=== PATIENT | male | born 1965 | race Caucasian/White ===

== ENCOUNTER 2024-10-24 17:56 | Emergency (ER) | payer SELFPAY ==
[2024-10-24 17:58] VITALS: BP 135/93; PULSE 99; RESP 18; TEMP 36.9; O2SAT 98; BMI 30.3
--- NOTE | 2024-10-24 18:06 | EX.ED.DYSGE1 ---
HPI History of Present Illness Chief Complaint: Abd Pain PFSH PFSH Home Medications ?Medication ?Instructions ?Recorded ?Last Taken ?Type No Known/Unobtainable [No Known 06/14/17 Unknown History Home Medications] Allergy/AdvReac Type Severity Reaction Status Date / Time Tetracyclines Allergy Rash Verified 10/24/24 17:58 Social History (Updated 03/23/18 @ 11:58 by Joshua DENNIS, PA) Smoking Status: Current every day smoker tobacco type: cigarettes EXAM Physical Exam Const Vital Signs: 10/24/24 17:58 10/24/24 19:43 Temperature 98.4 F Temperature Source Oral Pulse Rate 99 77 Respiratory Rate 18 18 Blood Pressure 135/93 H 121/77 H Blood Pressure Mean 107 91 Pulse Ox 98 98 Oxygen Delivery Method Room Air Room Air MDM MDM MDM Narrative Medical decision making narrative: HISTORY OF PRESENT ILLNESS: 58-year-old male presents abdominal pain for last week. Notes has been constipated. Also complains of shortness of breath. Notes his last bowel movement was today. He states was not a full bowel movement. He states he had little squishy pellets. Denies history abdominal surgeries. No significant umbilical hernia. Denies vomiting. Denies cough fever chills. Denies leg swelling. Denies chest pain. Denies bleeding diathesis. Denies melena or hematochezia. The patient denies recent surgery in the last 4 weeks or immobilization in the last 3 days, denies previous diagnosis of DVT or PE, hemoptysis, unilateral leg swelling or malignancy with treatment the last 6 months or palliative. No estrogen use noted. REVIEW OF SYSTEMS: Pertinent positives: Abdominal pain, constipation, shortness of breath Pertinent negatives: Chest pain, vomiting PHYSICAL EXAM: Nursing triage notes reviewed, Vital signs reviewed Constitutional: please see mdm HENT: MMM Eyes: Pupils equal round and reactive to light, Extraocular muscles intact Neck: No stridor, no JVD, full neck ROM Lungs: Clear to auscultation, No wheezing or rales. No increased work of breathing, no conversational dyspnea, no accessory muscle use, no nasal flaring. No respiratory distress noted Heart: Regular rate and rhythm, No murmurs, No rubs and No gallops, 2+ distal pulses (radial, femoral, posterior tibial) in all extremities Abdomen: Soft, no appreciable tenderness, umbilical hernia noted further reducible. Slight erythema noted over umbilical hernia but is not particularly tender or draining. No rigidity, rebound or guarding, no obvious peritoneal signs, no palpable pulsatile abdominal masses, no auscultated abdominal bruit : No CVAT Extremities: No edema Neuro: No new focal neurological deficits, cranial nerves II through XII intact, 5/5 strength in all present extremities. Intact sensation to light touch in all present extremities, 2+ reflexes bilateral patella tendons. Skin: No rash or lesions noted MEDICAL DECISION MAKING: Chief Complaint: Abdominal pain External records reviewed: Reviewed prior imaging. No recent advanced imaging of the abdomen pelvis noted in [facility] Factors affecting care: none reported in the chart Social determinants of health: Denies alcohol use History obtained from others: none Consults: none [facility] Narrative: The patient was hemodynamically stable, afebrile, nontoxic-appearing. Exam without peritoneal signs. I considered the following differential diagnosis: AAA, small bowel obstruction, abdominal perforation, appendicitis, pancreatitis, hepatobiliary pathology (acute cholecystitis), mesenteric ischemia, pathology (ie nephrolithiasis, pyelonephritis). Given the patient's advanced age, lower abdominal pain I did obtain a broad lab and imaging workup to further elucidate etiology patient's complaints. Initially treat the patient 1 L normal saline, 4 mg IV Zofran, 15 mg IV Toradol ALL IMAGES (IF OBTAINED) HAVE BEEN PERSONALLY REVIEWED AND INTERPRETED BY MYSELF. EKG with normal sinus rhythm rate of 85, left ax deviation, normal intervals, no STEMI CBC with leukocytosis suggestive of systemic inflammation, no anemia or thrombocytopenia noted CMP without evidence of acute kidney injury, significant electrolyte abnormality, anion gap to suggest end organ hypo-perfusion, no evidence of metabolic acidosis with a normal bicarbonate, no evidence of hepatobiliary obstructive pathology Lipase is wnl indicating no pancreatic inflammation. Urinalysis shows no evidence of urinary inflammation suggestive of UTI CT scan abdomen pelvis shows IMPRESSION: Moderate asymmetric wall thickening along the superior sigmoid colon with superjacent ovoid fat stranding. Primary colonic malignancy must be excluded and direct visualization is recommended. Other considerations include focal colitis and diverticulitis. Will give prophylactic antibiotics from Augmentin. Will give GI and oncology follow-up given concern for malignancy. The patient and/or family, caregivers express understanding. The patient and/or family, caregivers agrees with the plan. Shared decision making: I will have a discussion with the patient and or visitors regarding risk/benefits of further testing or admission. They will be made aware of of the risk/benefits inherent in this decision they will be given the opportunity to voice understanding. Total critical care time today provided was at least 0 minutes. This excludes separately billable procedures. Critical care time (if documented) is secondary to the patient having high probability of clinically significant/life threatening deterioration in the patient's condition which required my urgent intervention. Impression: 1. Abdominal pain 2. Dyspnea 3. Diverticulitis Dispo: Discharge This note was generated with [employer] dictation software. It may contain incorrect words, spelling, and punctuation that were not noted in review of the chart prior to signing. Lab Data Attestation: I reviewed the patient's lab results. Labs: Laboratory Results - last 24 hr 10/24/24 10/24/24 18:05 19:45 WBC 12.5 H RBC 4.83 Hgb 14.2 Hct 41.6 MCV 86.1 MCH 29.4 MCHC 34.1 RDW Std Deviation 37.7 RDW Coeff of Agnieszka 11.9 Plt Count 284 MPV 11.2 Immature Gran % (Auto) 0.500 Neut % (Auto) 68.9 Lymph % (Auto) 17.0 L [place] % (Auto) 10.0 Eos % (Auto) 3.0 Baso % (Auto) 0.6 Absolute Neuts (auto) 8.6 H Absolute Lymphs (auto) 2.13 Nucleated RBC % 0 Sodium 132 L Potassium 3.8 Chloride 99 Carbon Dioxide 26.0 Anion Gap 8 BUN 13 Creatinine 1.07 Estim Creat Clear Calc 87.48 Est GFR (MDRD) Af Amer 91 Est GFR (MDRD) Non-Af 75 BUN/Creatinine Ratio 12.1 Glucose 374 H Calcium 9.0 Total Bilirubin 0.30 AST 11 L ALT 21 Alkaline Phosphatase 136 H Total Protein 7.7 Albumin 2.9 L Globulin 4.8 H Albumin/Globulin Ratio 0.6 L Lipase 27 L Urine Color Yellow Urine Clarity Clear Urine pH 5.0 Ur Specific [place] 1.010 Urine Protein 15 H Urine Glucose (UA) 1000 H Urine Ketones Negative Urine Occult Blood Negative Urine Nitrite Negative Urine Bilirubin Negative Urine Urobilinogen Normal Ur Leukocyte Esterase Negative Urine RBC 0 SEEN Urine WBC 0 SEEN Ur Squamous Epith Cells 0 SEEN Urine Bacteria 0 SEEN Urine Mucus 0 SEEN Radiography Diagnostic Testing: Clinical Impression(s) from Imaging Studies Abdomen/Pelvis CT 10/24/24 18:16 IMPRESSION: Moderate asymmetric wall thickening along the superior sigmoid colon with superjacent ovoid fat stranding. Primary colonic malignancy must be excluded and direct visualization is recommended. Other considerations include focal colitis and diverticulitis. One or more dose reduction techniques were used (e.g., Automated exposure control, adjustment of the mA and/or kV according to patient size, use of iterative reconstruction technique). Reading [facility] Dis[facility] Plan Triage Chief Complaint: Abd Pain ED Provider: Luis Angel Goncalves Dx/Rx/DC Orders Prescriptions: No Action No Known Home Medications Primary Care Provider: Care Physician,No Primary Referrals: Care Physician,No Primary [Primary Care Provider] - Print Language: Cambodian
--- NOTE | 2024-10-24 18:16 | EKG12_ITS ---
Test Reason : DYSRHYTHMIA Blood Pressure : */* mmHG Vent. Rate : 85 BPM Atrial Rate : 85 BPM P-R Int : 166 ms QRS Dur : 72 ms QT Int : 350 ms P-R-T Axes : 34 -22 20 degrees QTcB Int : 416 ms Normal sinus rhythm Normal ECG Confirmed by Ephraim Todd ([id number]), assistant editor FARHAT DE OLIVEIRA ([id number]) on 10/25/2024 10:31:40 AM Referred By: Confirmed By: Ephraim Todd
--- NOTE | 2024-10-24 18:16 | CT_ITS ---
PROCEDURE: CT abdomen pelvis with IV contrast REASON FOR EXAM: Pain, constipation TECHNIQUE: Multiple contiguous axial images through the abdomen and pelvis were obtained after the administration of intravenous contrast. Two-dimensional coronal and sagittal reformatted images were reconstructed. Low-dose imaging technique was utilized. COMPARISON: None. FINDINGS: Lung bases are clear. Liver, spleen, pancreas and adrenal glands are intact. Gallbladder is satisfactory. No biliary ductal dilation. Kidneys enhance symmetrically. No suspicious renal mass, calculi or hydronephrosis. Urinary bladder is intact. 7 mm long segment of marked asymmetric colonic wall thickening at the superior margin of the sigmoid colon with superjacent ovoid fat stranding measuring 4.2 x 6.1 x 3.5 cm. A couple adjacent prominent lymph nodes. No bowel obstruction or other focal bowel wall thickening. Normal appendix. No pelvic free fluid. No free air. No abdominal aortic aneurysm or pathologically enlarged lymph nodes. Small fat containing umbilical and inguinal hernias. No acute osseous abnormality. Mild dextroscoliosis. CT/Abdomen/Pelvis W IV Cont ONLY IMPRESSION: Moderate asymmetric wall thickening along the superior sigmoid colon with super jacent ovoid fat stranding. Primary colonic malignancy must be excluded and direct visualization is recommended. Other con siderations include focal colitis and diverticulitis. One or more dose reduction techniques were used (e.g., Automated exposure contr ol, adjustment of the mA and/or kV according to patient size, use of iterative reconstruction technique). Reading Location: [facility]
[2024-10-24 18:27] LABS: Absolute Lymphocyte Count 2.13 X10^3/uL (0.83-4.51); Absolute Neutrophil Count 8.6 X10^3/uL (2.0-7.7); Basophil# 0.08 X10^3/uL; Basophil% 0.6 % (0-1); Eosinophil# 0.38 X10^3/uL; Hematocrit 41.6 % (40-54); Hemoglobin 14.2 g/dL (13.0-16.5); Lymphocyte # 2.13 X10^3/ul (0.83-4.51); Mean Corp Hgb Conc 34.1 g/dL (32-36); Mean Corpuscular Hgb 29.4 pg (27.0-32.0); Mean Corpuscular Volume 86.1 fL (80-94); Mean Platelet Vol. 11.2 fl (6.2-12.0); Monocyte# 1.25 X10^3/uL; NRBC Flagged by Analyzer 0 % (0-5); Neutrophil # 8.62 X10^3/uL (2.7-7.7); Neutrophil % 68.9 % (47-70); Platelet Count 284 K/mm3 (150-450); RBC Distribution Width CV 11.9 % (11.6-14.6); RBC Distribution Width SD 37.7 fl (35.1-43.9); Red Blood Count 4.83 M/mm3 (4.6-6.2); White Blood Count 12.5 K/mm3 (4.4-11.0)
[2024-10-24] MEDS: 0.9% Normal Saline (1000mL) 1,000 ML 999 ML IV (18:28)
[2024-10-24] MEDS: Ondansetron 4 MG/2 ML Vial IV (18:28)
[2024-10-24] MEDS: Ketorolac 15 MG/ML Vial IV (18:28)
[2024-10-24 18:46] LABS: ALB/GLOB Ratio 0.6 RATIO (0.9-2.4); AST(SGOT) 11 U/L (15-37); Alanine Aminotransfer ALT/SGPT 21 U/L (16-61); Albumin, Serum 2.9 g/dL (3.2-5.0); Alkaline Phosphatase 136 U/L (45-117); Anion Gap 8 (5-15); BUN 13 mg/dL (7-18); BUN/Creat Ratio 12.1 RATIO (10-20); Chloride 99 mmol/L (98-107); Creatinine, Serum 1.07 mg/dL (0.70-1.30); EST Glomerular Filtration Rate 75 mL/min (>60); Est Glom Filt Rate - Afr Amer 91 mL/min (>60); Estimated Creatinine Clearance 87.48 ml/min; Globulin 4.8 g/dL (2.2-4.2); Glucose 374 mg/dL (74-106); Lipase 27 U/L (73-393); Potassium 3.8 mmol/L (3.5-5.1); Protein, Total 7.7 g/dL (6.4-8.2); Sodium Level 132 mmol/L (136-145)
[2024-10-24 19:43] VITALS: BP 121/77; PULSE 77; RESP 18; O2SAT 98
[2024-10-24 19:52] LABS: Bacteria 0 SEEN /hpf (None Seen); Mucous, Urine 0 SEEN /hpf (<or=2+); Squamous Epithelial Cells - UA 0 SEEN /hpf (0-5); White Blood Cells 0 SEEN /hpf (0-5)
[2024-10-24 19:54] LABS: Color, Urine Yellow (Yellow); Glucose, Dipstick 1000 mg/dl (Normal); Ketone-Dipstick Negative (Negative); Leukocyte Esterase-Dipstick Negative /ul (Negative); Nitrite-Dipstick Negative (Negative); Occult Blood-Urine Negative /ul (Negative); Protein-Dipstick 15 mg/dl (Negative); Urine Bilirubin Dipstick Negative (Negative); Urine Clarity Clear (Clear); Urine Urobilinogen Normal (Normal)
[2024-10-24 20:16] LABS: Red Blood Cells-Urine 0 SEEN /hpf (0-5)
[2024-10-24] MEDS: Amox/Clavulanate 875 MG Tablet PO (21:12)
[2024-10-24 21:13] VITALS: BP 121/77; PULSE 77; RESP 18; TEMP 37; O2SAT 98
--- NOTE | 2024-10-25 09:41 | ED.RN ---
PT CALLED PRESCRIPTION WAS NOT AT [facility]. TALKED TO Que SMILEY MD. PRESCRIPTION FOR AUGMENTIN 875 MG BID X 10 DAYS CALLED IN TO [facility]
== END 2024-10-24 21:14 | disposition home or self-care (01) ==
PROVIDERS: Emergency Provider Emergency Medicine; Visit Provider Emergency Medicine
DX: K57.92 Diverticulitis of intestine, part unspecified, without perforation or abscess without bleeding (principal); R06.00 Dyspnea, unspecified; F17.210 Nicotine dependence, cigarettes, uncomplicated
CPT/HCPCS: 74177; 80053; 81001; 83690; 85025; 93005; 96361; 96374; 96375; 99283; Q9967; A4216; J2405

== ENCOUNTER 2025-03-01 21:02 | Emergency (ER) | payer MEDICAID, SELFPAY ==
[2025-03-01 21:02] VITALS: BP 127/86; PULSE 81; RESP 14; TEMP 37.1; O2SAT 98; BMI 29.7
[2025-03-01] MEDS: Tetracaine 0.5% Ophthalmic Bottle 1 DRP RIGHT EYE (22:31)
--- NOTE | 2025-03-01 22:53 | EDS_ITS ---
HPI History of Present Illness Chief Complaint: Eye Problem Informant: patient Narrative Narrative: Patient is a 59-year-old male with past medical history of insulin-dependent diabetes. 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 He states that he wears a fullface mask with goggles underneath as he knows there is high risk for the metal shavings to injure his eyes. He states that he typically will also use an air compressor to blow off any remaining fragments prior to removing his safety gear. Patient reports he did his normal routine yesterday and as he was driving home he felt a piece of metal blowing to his right eye. He states he has had increased tearing pain and light sensitivity. With concern he has a corneal foreign object he presents for evaluation. He denies any history of contact lens use. [facility] Medical History (Updated 03/02/25 @ 07:[address] Nacho Roy, DO) Ileostomy in place Diverticula of colon Diabetes Home Medications ?Medication ?Instructions ?Recorded ?Last Taken ?Type ciprofloxacin HCl 0.3 % eye drops 2 drp RIGHT EYE 4X/D AY 7 days #10 03/01/25 Unknown Rx mL insulin glargine 100 unit/mL (3 12 unit subcut QHS 09/25 Unknown History mL) subcutaneous pen (Lantus Solostar U-100 Insulin) Allergy/AdvReac Type Severity Reaction Status Date / Time Tetracyclines Allergy Rash Verified 03/01/25 21:03 Social History (Updated 03/23/18 @ 11:58 by Joshua DENNIS, JEANNIE) Smoking Status: Former smoker ROS ROS ED Constitutional Constitutional ED: Denies chills or fever(s) Eyes Eyes: Reports other Details: Positive photophobia and increased tearing ENT ENT ED: Denies sore throat Cardiovascular Cardiovascular: Denies chest pain Respiratory/Chest Respiratory/Chest: Denies cough or dyspnea Gastrointestinal Gastrointestinal: Denies abdominal pain, nausea or vomiting Genitourinary Genitourinary ED: Reports dysuria Musculoskeletal Musculoskeletal: Denies myalgias Integumentary Denies rash Neurologic Neurologic: Denies headache(s) Hematologic/Lymphatic Hematologic/Lymphatic: Denies easy bleeding or easy bruising EXAM Physical Exam Const Vital Signs: 03/01/25 21:02 Temperature 98.7 F Temperature Source Temporal Pulse Rate 81 Respiratory Rate 14 Blood Pressure 127/86 H Blood Pressure Mean 99 Pulse Ox 98 Oxygen Delivery Method Room Air Positive well nourished and well developed General Appearance ED: well developed HEENT HEENT Narrative: Normocephalic atraumatic Eyes PERRL and EOMs intact bilaterally Eyes Narrative: Pupils are equal reactive to light and accommodation extraocular muscles are intact Right eye has scleral injection with increased tearing. The upper lid was everted there is no hidden foreign. However over top of the iris near the 3 o'clock position is a foreign object consistent with piece of metal. There is a corneal abrasion at this site but negative Xiang sign going against globe rupture. Remainder the exam is normal Neck supple Resp normal respiratory effort and clear to auscultation bilaterally Cardio regular rate and regular rhythm Extremity normal to inspection Neuro oriented x3, CN's II-XII intact bilaterally, moves all extremities and no sensor y deficits noted Sensorium / Orientation: alert Motor Exam: strength 5/5 throughout Psych mental status grossly normal Skin no rashes or lesions noted and no wounds MDM MDM MDM Narrative Medical decision making narrative: Patient arrived to the ER with stable vitals and reported foreign body sensation in his right eye. With concern for retained foreign body versus corneal abrasion versus corneal ulcer versus globe rupture I performed a basic exam of the eye. There was a retained piece of metal in it at the 3 o'clock position over top of the iris consistent with his history. There is no signs of globe rupture. No dendritic lesions to suggest herpes zoster infection. The patient was given tetracaine and had resolution of pain. The bur was then used to remove the foreign object. It came out in 1 complete piece and there was no resulting rust ring. Based on the fact he now has a worsening corneal abrasion from removal of the foreign object he will be placed on ciprofloxacin eyedrops to prevent secondary infection. However as there is no sign of globe rupture there is no need for emergent ophthalmology consultation and he is otherwise safe for discharge History & Record Review Discussion w/independent historian: Patient Discharge Plan Triage Chief Complaint: Eye Problem ED Provider: Nacho Roy Dx/Rx/DC Orders Clinical Impression: Corneal abrasion, right, Foreign body in cornea, right eye, initial encounter, Diabetes mellitus type 2, insulin dependent Instructions: ED Corneal Abrasion, ED Corneal Foreign Body, Removed Prescriptions: New ciprofloxacin HCl 0.3 % drops 2 drp RIGHT EYE 4X/DAY 7 Days Qty: 10 0RF No Action insulin glargine [Lantus Solostar U-100 Insulin] 100 unit/mL (3 mL) insulin pen 12 unit subcut QHS Primary Care Provider: Care Physician,No Primary Referrals: Care Physician,No Primary [Primary Care Provider] - Activity Restrictions/Additional Instructions: Please use the prescribed eyedrops as directed to prevent any secondary infection. Follow-up with your eye doctor if there is no symptom improvement or resolution after 3 to 5 days. Return to the ER should you have any further concerns Print Language: Greenlandic Disposition Disposition: Home, Self Care Discharge Date/Time: 03/01/25 23:07
[2025-03-01 22:59] VITALS: BP 124/74; PULSE 81; RESP 14; TEMP 37.1; O2SAT 98
== END 2025-03-01 23:07 | disposition home or self-care (01) ==
PROVIDERS: Emergency Provider Emergency Medicine; Visit Provider Emergency Medicine
DX: T15.01XA Foreign body in cornea, right eye, initial encounter (principal); E11.9 Type 2 diabetes mellitus without complications; Z79.4 Long term (current) use of insulin; Z87.891 Personal history of nicotine dependence; R30.0 Dysuria; W44.8XXA Other foreign body entering into or through a natural orifice, initial encounter; Y92.69 Other specified industrial and construction area as the place of occurrence of the external cause; Y99.0 Civilian activity done for income or pay
CPT/HCPCS: 65220; 10120; 99282

== ENCOUNTER → 2025-05-25 | Outpatient (CLI) | payer MEDICAID, SELFPAY ==
--- NOTE | 2025-05-25 08:52 | CT_ITS ---
PROCEDURE: ABDOMEN/PELVIS WITH CONTRAST 05/25/2025 REASON FOR EXAM: ABDOMINAL ABSCESS, INFECTION SUSPECTED TECHNIQUE: Procedure Code: CTABDPELW Modality: CT Procedure: ABDOMEN/PELVIS WITH CONTRAST Coronal and Sagittal reconstruction series were provided. CONTRAST: 100 cc of Isovue 370 intravenous contrast. One or more dose reduction techniques were used (e.g., Automated exposure control, adjustment of the mA and/or kV according to patient size, use of iterative reconstruction technique. COMPARISON: CT abdomen and pelvis 10/24/2024 FINDINGS: Lung bases: Unremarkable. Liver: Mildly enlarged measuring up to 18.7 cm craniocaudally. No obvious hepatic mass. Gallbladder: Unremarkable. No biliary ductal dilatation. Spleen: Normal size. Pancreas: Normal size without evidence of mass surrounding inflammation or ductal dilation. Adrenals: Unremarkable. Kidneys: Normal renal sizes. No hydronephrosis. Bladder: Unremarkable. Reproductive Organs: The prostate is not enlarged. No pelvic masses. Bowel: Interval sigmoid colon resection and reanastomosis. Interval diverting right lower quadrant ileostomy. No evidence of bowel obstruction. Enhancing fluid collection compatible with abscess with drainage catheter and contrast in the left lower peritoneum measuring 4.1 x 2.2 x 5.6 cm. Appendix: Not visualized and likely surgically absent. Lymph nodes: Unremarkable. Vasculature: The abdominal aorta and IVC are normal. Peritoneum / Retroperitoneum: Scattered fat stranding throughout the lower peritoneum likely postsurgical. Bones: Degenerative changes of the spine. No acute fractures. CT/Abdomen/Pelvis WITH Contrast IMPRESSION: 1. Interval sigmoid resection and reanastomosis with diverting ileostomy in the left lower quadrant. 2. Enhancing 4.1 x 2.2 x 5.6 cm fluid collection compatible with abscess in the left lower peritoneum with drainage catheter in place. Reading [facility]
== END | disposition home or self-care (01) ==
LOC: CT 08:50
PROVIDERS: Referring Provider Surgery; Visit Provider Surgery
DX: K65.1 Peritoneal abscess (principal)
CPT/HCPCS: 74177; Q9967; A4216

== ENCOUNTER 2025-08-01 12:45 | Emergency (ER) | payer MEDICAID, SELFPAY ==
[2025-08-01 12:45] VITALS: BP 134/96; PULSE 111; RESP 18; TEMP 36.6; O2SAT 98; BMI 25.7
--- NOTE | 2025-08-01 13:32 | CT_ITS ---
PROCEDURE: ABDOMEN/PELVIS W IV CONT ONLY 08/01/2025 REASON FOR EXAM: PAIN AROUND ILEOSTOMY, DECREASED OUTPUT TECHNIQUE: Procedure Code: CTABDPELIV Modality: CT Procedure: ABDOMEN/PELVIS W IV CONT ONLY Coronal and Sagittal reconstruction series were provided. CONTRAST: Isovue-300 VOLUME: 100 mL One or more dose reduction techniques were used (e.g., Automated exposure control, adjustment of the mA and/or kV according to patient size, use of iterative reconstruction technique. RADIATION DOSE SUMMARY: CTDlvol: 7 mGy DLP: 590.39 mGycm COMPARISON: May 25, 2025. FINDINGS: Lung bases: The lung bases are clear. Liver: Minimal central intrahepatic biliary ductal dilatation. Gallbladder: The gallbladder is contracted. Tiny gallstone is seen along the dependent portion the gallbladder lumen. Questionable mild perihepatic fluid. Sonographic correlation recommended if clinically indicated. Spleen: Normal size. Pancreas: Normal size without evidence of mass surrounding inflammation or ductal dilation. Adrenals: Unremarkable Kidneys: Minimal fullness of the left renal pelvis although no rudi hydronephrosis. 1 cm cyst in the posterior midportion of the left kidney. Bladder: Unremarkable Prostatic enlargement. The prostate measures 4.5 cm by 4.7 cm. Central prostatic calcification. Bowel: Surgical sutures are seen in the region of the cecum. An ileostomy is seen in the anterior right lower quadrant. Findings suggestive of herniation within the ileostomy site. Appendix: Not present. Lymph nodes: Unremarkable. Vasculature: Mild diffuse atherosclerotic calcifications are noted. Peritoneum / Retroperitoneum: Unremarkable Bones: Degenerative changes of the spine. CT/Abdomen/Pelvis W IV Cont ONLY IMPRESSION: The gallbladder is contracted. Tiny gallstone. Questionable gallbladder wall thickening. Sonographic correlation recommended if clinically indicated. Status post surgical anastomosis in the region of the cecum with ileostomy. Th ere appears to be herniation into the ileostomy site. Reading Location: [facility]
[2025-08-01 13:39] LABS: Hematocrit 43.5 % (40-54); Hemoglobin 14.5 g/dL (13.0-16.5); Immature Granulocytes Count 0.030 X10^3/uL (0.0-0.0); Mean Corp Hgb Conc 33.3 g/dL (32-36); Mean Corpuscular Volume 89.5 fL (80-94); Mean Platelet Vol. 10.9 fl (6.2-12.0); NRBC Flagged by Analyzer 0 % (0-5); Platelet Count 241 K/mm3 (150-450); RBC Distribution Width CV 13.9 % (11.6-14.6); RBC Distribution Width SD 45.1 fl (35.1-43.9); Red Blood Count 4.86 M/mm3 (4.6-6.2); White Blood Count 9.8 K/mm3 (4.4-11.0)
--- NOTE | 2025-08-01 13:39 | EX.ED.DYSGE1 ---
HPI History of Present Illness Chief Complaint: Abd Pain Narrative Narrative: Chief complaint and HPI: 59-year-old male with past medical history of colon mass with ileostomy presents for evaluation of abdominal pain. Patient states today he started develop low ileostomy output with surrounding abdominal pain. He denies any fever, chills, shortness of breath, chest pain, nausea, vomiting. He follows with Dr. Mar with [facility]. Review of systems: See HPI Medications: As listed on the chart Allergies: As listed on the chart PFSH: Per chart Vital signs: As listed on the chart. Reviewed. Physical exam: Gen: A&O x3, NAD Head: Normocephalic, atraumatic Eyes: No sclera icterus, conjunctiva clear ENT: Moist mucous membranes CV: RRR, no murmurs Resp: Lungs CTA BL, no w/r/c GI: Abd soft, non-distended, mildly tender to palpation around the ileostomy, ileostomy pink with output and gas in the bag, no r/r/g Musc: Full ROM, no deformity Skin: Warm, dry Psych: Cooperative, appropriate mood and affect [facility] Medical History (Updated 08/01/25 @ 16:[address] 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 Diabetes Home Medications ?Medication ?Instructions ?Recorded ?Last Taken ?Type insulin glargine 100 unit/mL (3 10 - 12 unit subcut QHS 03/01/25 07/31/25 History mL) subcutaneous pen (Lantus Solostar U-100 Insulin) Allergy/AdvReac Type Severity Reaction Status Date / Time Tetracyclines Allergy Rash Verified 08/01/25 12:45 Social History Smoking Status: Former smoker EXAM Physical Exam Const Vital Signs: 08/01/25 12:45 08/01/25 15:22 Temperature 97.8 F Temperature Source Oral Pulse Rate 111 H 68 Respiratory Rate 18 16 Blood Pressure 134/96 H 117/90 H Blood Pressure Mean 108 99 Pulse Ox 98 Oxygen Delivery Method Room Air MDM MDM MDM Narrative Medical decision making narrative: 59-year-old male with past medical history of colon mass with ileostomy presents for evaluation of abdominal pain. Patient states today he started develop low ileostomy output with surrounding abdominal pain. He follows with Dr. Mar with [facility]. Differential diagnosis includes but is not limited to obstruction, gastroenteritis, colitis, ileus, electrolyte abnormality, dehydration. NS bolus, morphine, Zofran ordered for symptoms. Laboratory workup ordered including CT abdomen pelvis. CBC without leukocytosis or anemia. Platelets unremarkable. CMP unremarkable. Lipase unremarkable. UA negative for UTI. CT abdomen pelvis shows that the gallbladder is contracted with tiny gallstones. Questionable gallbladder wall thickening. Recommend ultrasound if clinically indicated. Patient is not having any right upper quadrant abdominal pain. He is nontender on palpation in this area. Negative Arteaga sign. Patient again endorses that all of his pain is located at the ileostomy. I do not think ultrasound is warranted. There is surgical anastomosis in the region of the cecum with ileostomy. There appears to be a herniation into the ileostomy site via CT. Will reach out to general surgery. Patient was discussed with Dr. Castillo. He reviewed the imaging. Patient has a Peristomal hernia without obstruction. Okay to discharge and follow-up with his surgeon. Return precautions explained. Patient confirmed understanding the plan. Patient will discharge home. Impression: 1. Abdominal pain 2. Peristomal hernia around ileostomy Lab Data Labs: Laboratory Results - last 24 hr 08/01/25 08/01/25 13:14 14:35 WBC 9.8 RBC 4.86 Hgb 14.5 Hct 43.5 MCV 89.5 MCH 29.8 MCHC 33.3 RDW Std Deviation 45.1 H RDW Coeff of Agnieszka 13.9 Plt Count 241 MPV 10.9 Immature Gran % (Auto) 0.300 Neut % (Auto) 72.6 H Lymph % (Auto) 18.5 L [place] % (Auto) 6.7 Eos % (Auto) 1.5 Baso % (Auto) 0.4 Absolute Neuts (auto) 7.1 Absolute Lymphs (auto) 1.81 Nucleated RBC % 0 Sodium 138 Potassium 4.6 Chloride 103 Carbon Dioxide 26.4 Anion Gap 9 BUN 11 Creatinine 1.15 Estim Creat Clear Calc 71.41 Est GFR (MDRD) Non-Af 73 BUN/Creatinine Ratio 9.3 L Glucose 138 H Calcium 9.8 Total Bilirubin 0.49 AST 19 ALT 13 Alkaline Phosphatase 70 Total Protein 7.2 Albumin 4.2 Globulin 3.1 Albumin/Globulin Ratio 1.4 Lipase 20 Urine Color Straw Urine Clarity Clear Urine pH 6.0 Ur Specific [place] 1.015 Urine Protein Negative Urine Glucose (UA) Normal Urine Ketones Negative Urine Occult Blood Negative Urine Nitrite Negative Urine Bilirubin Negative Urine Urobilinogen Normal Ur Leukocyte Esterase Negative Urine RBC 0 SEEN Urine WBC 0 SEEN Ur Squamous Epith Cells 0 SEEN Urine Bacteria 0 SEEN Urine Mucus 0 SEEN Radiography Diagnostic Testing: Clinical Impression(s) from Imaging Studies Abdomen/Pelvis CT 08/01/25 13:32 IMPRESSION: The gallbladder is contracted. Tiny gallstone. Questionable gallbladder wall thickening. Sonographic correlation recommended if clinically indicated. Status post surgical anastomosis in the region of the cecum with ileostomy. There appears to be herniation into the ileostomy site. Reading Location: [place] [id number] Discharge Plan Triage Chief Complaint: Abd Pain ED Provider: Celio Ruiz Dx/Rx/DC Orders Clinical Impression: Parastomal hernia Instructions: How a Hernia Develops Prescriptions: No Action insulin glargine [Lantus Solostar U-100 Insulin] 100 unit/mL (3 mL) insulin pen 10 - 12 unit subcut QHS Primary Care Provider: Benjie Brown Referrals: Follow-up with your surgeon [Other] - 3-5 Days Benjie Brown MD [Primary Care Provider, Family Practice] - 3-5 Days Activity Restrictions/Additional Instructions: Follow-up with your surgeon. Return back to ED symptoms change or worsen. Print Language: Japanese Disposition Disposition: Home, Self Care
[2025-08-01] MEDS: 0.9% Normal Saline (1000mL) 1,000 ML 999 ML IV (13:40)
[2025-08-01 14:09] LABS: AST(SGOT) 19 U/L (<=37); Alanine Aminotransfer ALT/SGPT 13 U/L (<=46); Albumin, Serum 4.2 g/dL (3.5-5.0); Alkaline Phosphatase 70 U/L (40-129); Anion Gap 9 (5-15); BUN 11 mg/dL (4-19); BUN/Creat Ratio 9.3 RATIO (10-20); Calcium,Total 9.8 mg/dL (7.6-11.0); Carbon Dioxide 26.4 mmol/L (21.0-32.0); Chloride 103 mmol/L (98-108); Estimated Creatinine Clearance 71.41 ml/min (50-250); Globulin 3.1 g/dL (2.2-4.2); Glucose 138 mg/dL (70-99); Lipase 20 U/L (13-75); Potassium 4.6 mmol/L (3.3-5.1)
[2025-08-01 14:42] LABS: Mucous, Urine 0 SEEN /hpf (<or=2+); Red Blood Cells-Urine 0 SEEN /hpf (0-5); Squamous Epithelial Cells - UA 0 SEEN /hpf (0-5)
[2025-08-01 14:45] LABS: Color, Urine Straw (Yellow); Glucose, Dipstick Normal (Normal); Ketone-Dipstick Negative (Negative); Leukocyte Esterase-Dipstick Negative /ul (Negative); Nitrite-Dipstick Negative (Negative); Occult Blood-Urine Negative /ul (Negative); Protein-Dipstick Negative (Negative); Specific Gravity, Urine 1.015 (1.002-1.030); Urine Bilirubin Dipstick Negative (Negative)
[2025-08-01 15:22] VITALS: BP 117/90; PULSE 68; RESP 16
[2025-08-01 16:00] VITALS: BP 140/86; PULSE 78; RESP 16; TEMP 36.6; O2SAT 99
== END 2025-08-01 16:13 | disposition home or self-care (01) ==
PROVIDERS: Emergency Provider Surgery; PCP Family Medicine; Visit Provider Surgery
DX: K43.5 Parastomal hernia without obstruction or gangrene (principal); Z93.2 Ileostomy status; E11.9 Type 2 diabetes mellitus without complications; R10.9 Unspecified abdominal pain; Z87.891 Personal history of nicotine dependence
CPT/HCPCS: 74177; 80053; 81001; 83690; 85025; 96361; 96374; 96375; 99283; Q9967; A4216; J2405